=== PATIENT | female | born 1980 | race Hispanic/Latino ===

== ENCOUNTER 2018-10-23 21:50 | Emergency (ER) | payer SELFPAY ==
[~2018-10-23] VITALS: Ht 165.1 cm; Wt 76.4 kg
[~2018-10-23 21:50] MED LIST: FERR SULFATE325 MG PO; LABETALOL200 MG PO; PRENATA3 PO
[2018-10-23 23:44] LABS: URINE BILIRUBIN - DIPSTICK NEGATIVE (NEGATIVE); URINE BLOOD DIPSTICK NEGATIVE (NEGATIVE); URINE COLOR YELLOW; URINE GLUCOSE - DIPSTICK NEGATIVE (NEGATIVE); URINE KETONE NEGATIVE (NEGATIVE); URINE LEUK ESTERASE NEGATIVE (NEGATIVE); URINE NITRITE - DIPSTICK NEGATIVE (Negative); URINE PROTEIN - DIPSTICK NEGATIVE (NEG-TRACE); URINE SPECIFIC GRAVITY <=1.005; URINE UROBILINOGEN - DIPSTICK 0.2 E.U./dL (0.2)
[2018-10-23 23:46] LABS: HEMATOCRIT 29.3 % (37.0-47.0); IMMATURE GRANULOCYTES 0.3 % (0.0-5.0); MEAN CORPUSCULAR HGB 31.7 pG CALC (26.0-32.0); MEAN CORPUSCULAR HGB CONC 34.8 g/L CALC (32.0-36.0); NEUT# 3.66 thou/uL (2.00-7.15); RED BLOOD COUNT 3.22 mill/uL (4.20-5.60); RED CELL DISTRI WIDTH 11.8 % (11.5-15.5)
[2018-10-23 23:50] LABS: HEMOGLOBIN 10.2 g/dl (12.0-16.0)
[2018-10-24 00:01] LABS: ALBUMIN 4.2 g/dL (3.2-5.0); AMYLASE 49 u/l (30-110); ANION GAP 15 (6-22 (CALC)); BILIRUBIN, TOTAL 0.3 mg/dL (0.0-1.4); BUN 16 mg/dL (7-17); BUN/CREATININE RATIO 19 (12-20 (CALC)); CARBON DIOXIDE 27 mmol/l (22-30); CHLORIDE 104 mmol/l (95-108); CREATININE 0.9 mg/dL (0.5-1.0); GFR > 60 ML/MIN (>=60 (CALC)); GFR FOR AFR.AMER. > 60 ML/MIN (>=60 (CALC)); LIPASE 110 u/l (23-300); POTASSIUM 3.8 mmol/l (3.5-5.1); SODIUM 142 mmol/l (137-146); TOTAL PROTEIN 6.7 g/dL (6.3-8.2)
[2018-10-24 00:07] LABS: ALKALINE PHOSPHATASE 69 u/l (38-126); SGOT/AST 16 u/l (14-36)
[2018-10-24 00:12] LABS: URINE BACTERIA FEW hpf; URINE RBC 0-2 RBC/hpf (0-5); URINE SQUAMOUS EPITHELIAL CELL FEW EPI/hpf (0-FEW); URINE WBC 0-2 WBC/hpf (0-5)
[2018-10-24 02:07] VITALS: BP 142/65
== END 2018-10-24 02:07 | disposition home or self-care (01) | DRG 392 ==
LOC: ED 21:50
PROVIDERS: Emergency Medicine
DX: R10.11 Right upper quadrant pain (principal); Q61.3 Polycystic kidney, unspecified; Q44.6 Cystic disease of liver
CPT/HCPCS: Q9967; S0164